=== PATIENT | female | born 1940 | race American Indian/Alaskan Native ===

== ENCOUNTER 2016-08-12 14:39 | Emergency (ER) | payer MEDICARE ==
[~2016-08-12 14:39] MED LIST: ADRENALIN ONE; ATROPINE 0.1% (CARDIAC) ONE; CALCIUM CHLORIDE IV ONE; CORDARONE IV ONE
--- NOTE | 2016-08-12 16:49 | Emergency Department Report ---
ED CPR HPI - General Chief Complaint: Cardiac Arrest/CPR Stated Complaint: CARDIAC ARREST Time Seen by Provider: 08/12/16 15:40 Source: EMS Mode of arrival: Stretcher Limitations: Other - History of Present Illness MD Complaint: found unresponsive Onset/Timin -: minute(s) (before arrival) Place: home Bystander CPR Performed: No AED Applied by Bystander/Tobacco Cutter: Yes Shock Advised: Yes Number of Shocks Delivered: 1 Initial Findings in the Field: unresponsive, no respirations, no pulse ROSC in the Field: No Associated Injuries: No Associated Symptoms: other (vomiting blood). denies: chest pain, abdominal pain , back pain, shortness of breath, headache, dizziness/weakness, sweating, palpitations Treatments Prior to Arrival: intubation, BMV, chest compressions, defribrillated shocks # (1), epinephrine mgs # (3), sodium bicarbonate (1) - Related Data Allergies Allergy/AdvReac Type Severity Reaction Status Date / Time No Known Allergies Allergy Unverified 08/12/16 14:57 ED Review of Systems ROS: Stated complaint: CARDIAC ARREST Other details as noted in HPI Comment: Unobtainable due to pts medical conditions ED Past Medical Hx - Past Medical History Previous Medical History?: Yes Hx Hypertension: Yes Hx CVA: Yes Hx Diabetes: Yes Hx GERD: Yes Hx Arthritis: Yes Additional medical history: hyperlipidemia. pacemaker. hemiplegia. hemiparesis. contracture. cerbrovascular disease. afib. dementia - Surgical History Hx Pacemaker: Yes - Social History Smoking Status: Unknown if ever smoked ED Physical Exam - General Limitations: Other (patient with no pulse) - Head Head exam: Present: atraumatic, normocephalic - Eye Eye exam: Present: normal appearance (pupils dilated) - ENT ENT exam: Present: normal exam - Neck Neck exam: Present: normal inspection - Cardiovascular Cardiovascular Exam: Present: other (no pulses) - GI/Abdominal GI/Abdominal exam: Present: soft - Extremities Exam Extremities exam: Present: normal inspection, full ROM - Back Exam Back exam: Present: normal inspection - Neurological Exam Neurological exam: Present: alert - Intubation Time Out Performed: No Sedative: none Laryngoscope: Jerardo Size: 3 ET Tube Size: 7 Tube Secured Location: lips Tube Placement Confirmation: visualized tube passing t Intubation Complications: none Critical care time in (mins) excluding proc time.: 35 Critical care attestation.: If time is entered above; I have spent that time in minutes in the direct care of this critically ill patient, excluding procedure time. ED Disposition Clinical Impression: Cardiac arrest Disposition: Is pt being admited?: No Does the pt Need Aspirin: No Condition: Critical Time of Disposition: 16:51
== END 2016-08-12 19:25 ==
LOC: ED 14:39
DX: I46.9 Cardiac arrest, cause unspecified (principal); I10 Essential (primary) hypertension; E11.9 Type 2 diabetes mellitus without complications; K21.9 Gastro-esophageal reflux disease without esophagitis; E78.00 Pure hypercholesterolemia, unspecified
CPT/HCPCS: 31500; 99291; J0171; J0282; J0461